=== PATIENT | female | born 1965 | race Caucasian/White ===

== ENCOUNTER 2023-09-12 17:49 | Observation (INO) | payer OTHER ==
[2023-09-12] MEDS ORDERED: NA CHLORIDE 0.9% 1,000 ML ONE ×2 (18:23→18:50)
[2023-09-12] MEDS ORDERED: ONDANSETRON 4 MG/2 ML VIAL ONE (18:24)
[2023-09-12 19:18] LABS: Absolute Eosinophils 0.1 K/uL (0-0.5); Absolute Lymphocytes (CBC) 2.5 K/uL (0.7-4.9); Absolute Monocytes 0.9 K/uL (0.1-1.3); Absolute Neutrophil 12.2 K/uL (1.8-8.0); Basophils % 0.1 % (0-1.3); Eosinophils % 0.8 % (0-4.4); Hematocrit 47.4 % (36.0-45.0); Hemoglobin 15.8 g/dL (12.0-15.0); Lymphocytes % 15.7 % (15.3-44.8); MCH 29.7 pg (27.0-35.0); MCHC 33.3 g/dL (32.0-36.0); MCV 89.3 fL (80-100); MPV 8.4 fL (7.6-11.3); Neutrophils % 77.4 % (41.7-73.7); Nucleated Red Blood Cells % 0.1 % (0-0); Platelets 362 thou/uL (152-406); RBC Red Blood Cell Count 5.31 M/uL (3.86-4.86); Red Cell Distribution Width 14.6 % (12.1-15.2)
[2023-09-12 19:23] LABS: PT Prothrombin Time 10.9 SECONDS (9.5-12.5); PTT, Activated Partial Thromb 26.5 SECONDS (24.3-36.9); Protime INR 0.99
[2023-09-12 19:32] LABS: Albumin 3.9 g/dL (3.4-5.0); Albumin/Globulin Ratio 1.1 (1.1-1.8); Bilirubin Direct 0.2 mg/dL (0-0.2); Bilirubin Indirect, Calculated 0.6 mg/dL (0.2-0.8); Bilirubin Total 0.8 mg/dL (0.2-1.0); Globulin 3.5 g/dL (2.3-3.5); Protein, Total 7.4 g/dL (6.4-8.2); Troponin High Sensitivity 6.8 pg/mL (<58.9)
--- NOTE | 2023-09-12 20:08 | EDPHYS ---
Physician Documentation [facility] Name: Keely Ortiz Age: 58 yrs Sex: Female : 1965 Arrival Date: 09/12/2023 Time: 17:49 Bed 3 Private MD: ED Physician Damian Pierce HPI: 09/11 20:05 This 58 yrs old Female presents to ER via Ambulatory with complaints of kb Nausea/Vomiting/Diarrhea, Dizziness. 20:05 Pt is a 58 year old female who presents for nausea, vomiting and diarrhea that started kb on Monday. States she took an ozempic shot on Monday night. Has not been able to tolerate anything by mouth since Monday night. Reports dizziness upon standing that started today. Denies fever, abd pain. Historical: - Allergies: 18:09 Sulfa (Sulfonamide Antibiotics); iw 18:09 Remicade; iw 18:09 Codeine; iw 18:09 Benadryl; iw - PMHx: 18:09 ankylosing spond; Fibromyalgia; Diverticulitis; iw - PSHx: 18:09 hip replacement; hysterectomy; Cholecystectomy; iw ROS: 20:03 Constitutional: As per HPI kb Exam: 20:03 Constitutional: This is a well developed, well nourished patient who is awake, alert, kb and in no acute distress. Head/Face: Normocephalic, atraumatic. ENT: Moist Mucous membranes Cardiovascular: Regular rate Respiratory: Respirations even and unlabored. No increased work of breathing. Talking in full sentences Abdomen/GI: Soft, non-tender. No distention Skin: Warm, dry with normal turgor. Normal color. MS/ Extremity: Pulses equal, no cyanosis. Neurovascular intact. Full, normal range of motion. Neuro: Awake and alert, GCS 15, oriented to person, place, time, and situation. Moves all extremities. Normal gait. 21:40 ECG was reviewed by the Attending Physician. kb Vital Signs: 18:11 BP 72 / 42; Pulse 89; Resp 16; Pulse Ox 100% on R/A; iw 18:45 BP 65 / 53 LA Supine (auto/reg); Pulse 71; kc6 18:45 BP 74 / 47 LA Sitting (auto/reg); Pulse 80; kc6 18:45 BP 75 / 59 LA Standing (auto/reg); Pulse 80; kc6 18:53 BP 85 / 60; Pulse 66; Resp 16 S; Pulse Ox 100% on R/A; kc6 19:50 BP 107 / 44; Pulse 64; Resp 16; Pulse Ox 100% on R/A; me1 20:00 BP 92 / 65; Pulse 70; Resp 16; Pulse Ox 100% on R/A; me1 21:00 BP 109 / 63; Pulse 63; Resp 16; Pulse Ox 100% ; me1 22:00 BP 115 / 73; Pulse 65; Resp 14; Pulse Ox 100% ; me1 MDM: 17:58 Patient medically screened. kb 20:03 Differential diagnosis: Nonspecific abd pain, viral gastroenteritis, dehydration, kb abnormal electrolytes. Data reviewed: vital signs, nurses notes. Consideration of Admission/Observation Patient was admitted/placed on observation. Escalation of care including admission/observation considered. Management of patient was discussed with the following: Hospitalist: Dr Cullen accepts pt for admission. Historians other than the Patient: Spouse/Significant Other: . Counseling: I had a detailed discussion with the patient and/or guardian regarding the historical points, exam findings, and any diagnostic results supporting the discharge/admit diagnosis, lab results, radiology results, the need for further work-up and treatment in the hospital. 09/11 18:13 Order name: Basic Metabolic Panel 09/11 18:13 Order name: CBC with Diff 09/11 18:13 Order name: Hepatic Function 09/11 18:13 Order name: Magnesium 09/11 18:13 Order name: Protime (+inr) 09/11 18:13 Order name: Ptt, Activated 09/11 18:13 Order name: Troponin High Sensitivity 09/11 19:08 Order name: Basic Metabolic Panel [facility] 09/11 19:08 Order name: Liver (Hepatic) Function [facility] 09/11 19:08 Order name: Troponin High Sensitivity [facility] 09/11 19:08 Order name: Magnesium [facility] 09/11 19:08 Order name: CBC with Automated Diff [facility] 09/11 19:08 Order name: Protime (+INR) [facility] 09/11 19:08 Order name: PTT, Activated Partial Thromb [facility] 09/11 19:20 Order name: CBC with Automated Diff; Complete Time: 19:27 [facility] 09/11 19:24 Order name: Protime (+INR); Complete Time: 19:27 EDMS 09/11 19:24 Order name: PTT, Activated Partial Thromb; Complete Time: 19:27 EDMS 09/11 19:32 Order name: Basic Metabolic Panel; Complete Time: 19:34 EDMS 09/11 19:32 Order name: Liver (Hepatic) Function; Complete Time: 19:34 EDMS 09/11 19:32 Order name: Troponin High Sensitivity; Complete Time: 19:34 EDMS 09/11 19:32 Order name: Magnesium; Complete Time: 19:34 EDMS 09/11 18:13 Order name: EKG; Complete Time: 18:14 kb 09/11 18:13 Order name: Cardiac monitoring; Complete Time: 18:44 kb 09/11 18:13 Order name: EKG - Nurse/Tech; Complete Time: 18:44 kb 09/11 18:13 Order name: IV Saline Lock; Complete Time: 18:44 kb 09/11 18:13 Order name: Labs collected and sent; Complete Time: 18:44 kb 09/11 18:13 Order name: NPO; Complete Time: 18:16 kb 09/11 18:13 Order name: O2 Per Protocol; Complete Time: 18:16 kb 09/11 18:13 Order name: O2 Sat Monitoring; Complete Time: 18:16 kb 09/11 18:13 Order name: Orthostatics; Complete Time: 18:44 kb EC:40 Rate is 78 beats/min. Rhythm is regular. QRS Clyman is Normal. ID interval is normal at kb 178 msec. QRS interval is normal at 92 msec. QT interval is normal at 442 msec. Administered Medications: 18:44 Drug: NS 0.9% IV 1000 ml IV at 1000 ml once Route: IV; Rate: 1000 ml; Site: right [facility] antecubital; 22:28 Follow up: Response: No adverse reaction; IV Status: Completed infusion; IV Intake: me1 1000ml 18:44 Drug: Ondansetron IVP 4 mg IVP once; over 2 minutes Route: IVP; Site: right antecubital;[facility] 19:50 Follow up: Response: No adverse reaction; Nausea is decreased me1 18:53 Drug: NS 0.9% IV 1000 ml IV at 1000 ml once Route: IV; Rate: 1000 ml; Site: left kc6 antecubital; 19:50 Follow up: Response: No adverse reaction; IV Status: Completed infusion me1 20:13 Drug: Potassium Chloride PO 40 mEq PO once Route: PO; me1 22:28 Follow up: Response: No adverse reaction me1 Disposition Summary: 09/12/23 20:07 Hospitalization Ordered Notes: Hospitalization Status: Observation kb Provider: Burt Cullen Location: Telemetry/MedSur (observation) kb Condition: Stable kb Problem: new kb Symptoms: are unchanged kb Bed/Room Type: Standard Room Assignment: 228(09/12/23 22:02) rv1 Diagnosis - Dehydration kb - Hypokalemia kb - Acute kidney failure, unspecified kb Forms: - Medication Reconciliation Form kb - SBAR form kb - Leadership Thank You Letter kb Critical care time excluding procedures: 20:03 Critical care time: Bedside Care: 15 minutes, Consultation: 10 minutes, Family kb Intervention: 5 minutes. Total time: 30 minutes Signatures: Dispatcher [employer] EDEileen Grewal, HOTEL BAGGAGE HANDLER-C HOTEL BAGGAGE HANDLER-Ckb Ashlie Champion, RN RN iw Charlene Fisher RN RN 6 Eneida Hoover rv1 Amy Cano, ALBIN RN me1 Corrections: (The following items were deleted from the chart) 22:02 20:07 kb rv1
--- NOTE | 2023-09-12 20:08 | ER ---
Nurse's Notes [facility] Name: Keely Ortiz Age: 58 yrs Sex: Female : 1965 Arrival Date: 09/12/2023 Time: 17:49 Bed 3 Private MD: Diagnosis: Dehydration;Hypokalemia;Acute kidney failure, unspecified Presentation: 09/11 18:10 Chief complaint: Patient states: started taking Ozempic for weight loss, last week, has iw been having vomiting, diarrhea , general weakness. Coronavirus screen: At this time, the client does not indicate any symptoms associated with coronavirus-19. Ebola Screen: Patient negative for fever greater than or equal to 101.5 degrees Fahrenheit, and additional compatible Ebola Virus Disease symptoms Patient denies exposure to infectious person. Patient denies travel to an Ebola-affected area in the 21 days before illness onset. No symptoms or risks identified at this time. Initial Sepsis Screen: Does the patient meet any 2 criteria? Does the patient have a suspected source of infection? No. Patient's initial sepsis screen is negative. Risk Assessment: Do you want to hurt yourself or someone else? Patient reports no desire to harm self or others. 18:10 Method Of Arrival: Ambulatory iw 18:10 Acuity: RODGER 2 iw 18:11 Onset of symptoms was September 11, 2023. iw Historical: - Allergies: 18:09 Sulfa (Sulfonamide Antibiotics); iw 18:09 Remicade; iw 18:09 Codeine; iw 18:09 Benadryl; iw - PMHx: 18:09 ankylosing spond; Fibromyalgia; Diverticulitis; iw - PSHx: 18:09 hip replacement; hysterectomy; Cholecystectomy; iw Screenin:45 [facility] ED Fall Risk Assessment (Adult) History of falling in the last 3 months, kc6 including since admission No falls in past 3 months (0 pts) Confusion or Disorientation No (0 pts) Intoxicated or Sedated No (0 pts) Impaired Gait No (0 pts) Mobility Assist Device Used No (0 pt) Altered Elimination No (0 pt) Score/Fall Risk Level 0 - 2 = Low Risk. Abuse screen: Denies threats or abuse. Denies injuries from another. Nutritional screening: No deficits noted. Tuberculosis screening: No symptoms or risk factors identified. Assessment: 18:54 General: Appears in no apparent distress. comfortable, well groomed, well developed, kc6 Behavior is calm, cooperative, appropriate for age, Reports fatigue for 0-12 hours. Pain: Denies pain. Neuro: Level of Consciousness is awake, alert, obeys commands, Oriented to person, place, time, situation, Appropriate for age Reports dizziness, a syncopal episode weakness. Cardiovascular: Denies chest pain, shortness of breath, Capillary refill < 3 seconds. Respiratory: Airway is patent Trachea midline Respiratory effort is even, unlabored, Respiratory pattern is regular, symmetrical. GI: Abdomen is flat, non-distended, Bowel sounds present X 4 quads. Reports diarrhea, nausea, vomiting, Patient currently denies abdominal pain. : No signs and/or symptoms were reported regarding the genitourinary system. EENT: No signs and/or symptoms were reported regarding the EENT system. Derm: No signs and/or symptoms reported regarding the dermatologic system. Skin is intact, is healthy with good turgor, Skin is dry, Skin is pale, Skin temperature is warm. Musculoskeletal: No signs and/or symptoms reported regarding the musculoskeletal system. Circulation, motion, and sensation intact. Capillary refill < 3 seconds, Range of motion: intact in all extremities. Vital Signs: 18:11 BP 72 / 42; Pulse 89; Resp 16; Pulse Ox 100% on R/A; iw 18:45 BP 65 / 53 LA Supine (auto/reg); Pulse 71; kc6 18:45 BP 74 / 47 LA Sitting (auto/reg); Pulse 80; kc6 18:45 BP 75 / 59 LA Standing (auto/reg); Pulse 80; kc6 18:53 BP 85 / 60; Pulse 66; Resp 16 S; Pulse Ox 100% on R/A; kc6 19:50 BP 107 / 44; Pulse 64; Resp 16; Pulse Ox 100% on R/A; me1 20:00 BP 92 / 65; Pulse 70; Resp 16; Pulse Ox 100% on R/A; me1 21:00 BP 109 / 63; Pulse 63; Resp 16; Pulse Ox 100% ; me1 22:00 BP 115 / 73; Pulse 65; Resp 14; Pulse Ox 100% ; me1 ED Course: 17:53 Patient arrived in ED. im 17:58 Eileen Dodson FNP-C is PHCP. kb 17:58 Damian Pierce MD is Attending Physician. kb 18:11 Triage completed. iw 18:11 Arm band placed on. iw 18:45 Inserted saline lock: 20 gauge in right antecubital area, using aseptic technique. kc6 Blood collected. 18:46 Patient has correct armband on for positive identification. Placed in gown. Bed in low kc6 position. Call light in reach. Side rails up X2. Adult w/ patient. Client placed on continuous cardiac and pulse oximetry monitoring. NIBP monitoring applied. 18:52 Inserted saline lock: 20 gauge in left antecubital area, using aseptic technique. kc6 18:54 Charlene Fisher RN is Primary Nurse. kc6 19:09 Report given to ALBIN Munoz. kc6 20:07 Burt Cullen MD is Hospitalizing Provider. kb 22:51 No provider procedures requiring assistance completed. Patient admitted, IV remains in rv place. Administered Medications: 18:44 Drug: NS 0.9% IV 1000 ml IV at 1000 ml once Route: IV; Rate: 1000 ml; Site: right kc6 antecubital; 22:28 Follow up: Response: No adverse reaction; IV Status: Completed infusion; IV Intake: me1 1000ml 18:44 Drug: Ondansetron IVP 4 mg IVP once; over 2 minutes Route: IVP; Site: right antecubital;kc6 19:50 Follow up: Response: No adverse reaction; Nausea is decreased me1 18:53 Drug: NS 0.9% IV 1000 ml IV at 1000 ml once Route: IV; Rate: 1000 ml; Site: left kc6 antecubital; 19:50 Follow up: Response: No adverse reaction; IV Status: Completed infusion me1 20:13 Drug: Potassium Chloride PO 40 mEq PO once Route: PO; me1 22:28 Follow up: Response: No adverse reaction me1 Medication: 22:51 VIS not applicable for this client. rv Intake: 22:28 IV: 1000ml; Total: 1000ml. me1 Outcome: 20:07 Decision to Hospitalize by Provider. kb 22:51 Admitted to Med/surg accompanied by nurse, via wheelchair, room 228, with chart, rv 22:51 Condition: good 22:51 Instructed on the need for admit, 22:52 Patient left the ED. rv Signatures: Eileen Dodson, TITRATOR-C TITRATOR-CkAshlie Reed, RN RN iw Vaibhav Tao RN RN Charlene Alexandre RN RN kc6 Yasmeen Lin Michelle RN RN me1 Corrections: (The following items were deleted from the chart) 18:12 18:11 Pulse 89bpm; Resp 16bpm; Pulse Ox 100% RA; iw iw
[2023-09-12] MEDS ORDERED: POTASSIUM CL SA 10 MEQ TAB PO ONE (20:09)
[2023-09-12] MEDS ORDERED: ONDANSETRON 4 MG/2 ML VIAL IV PRN (21:54)
[2023-09-12] MEDS ORDERED: ACETAMINOPHEN 325 MG TABLET PO PRN (21:54)
[2023-09-12] MEDS: NA CHLORIDE 0.9% 1,000 ML IV SCH (22:00)
[2023-09-12 23:19] VITALS: BMI 28.7
[2023-09-12 23:38] VITALS: O2SAT 100
[2023-09-12] MEDS: NA CHLORIDE 0.9% 1,000 ML ONE (23:43)
--- NOTE | 2023-09-13 00:07 | P.HP ---
Certification for Inpatient Patient admitted to: Inpatient With expected LOS: >2 Midnights Practitioner: I am a practitioner with admitting privileges, knowledge of patient current condition, hospital course, and medical plan of care. Services: Services provided to patient in accordance with Admission requirements found in Title 42 Section 412.3 of the Code of Federal Regulations Patient History Date of Service: 09/12/23 Reason for admission: Nausea .Vomiting History of Present Illness: 58 yrs old Female with past medical history of ankylosing spondylitis, fibromyalgia, diverticulitis, who was brought to ER with intractable nausea vomiting associated with diarrhea which has been going on for the last 2 days and has been progressively worsening. Complains of generalized weakness. Associated with some dizziness. Denies any fever or chills. No abdominal pain. Denies any chest pain or shortness of breath. Patient took an Ozempic shot on Monday night. And could not been able to tolerate anything p.o. since Monday. No sick contacts. Patient was assessed in the ER and found to have acute kidney injury and dehydration and was admitted for further management Allergies No Known Allergies Allergy (Unverified 09/12/23 22:34) Home medications list reviewed: Yes - Past Medical/Surgical History Past Medical History: Reviewed- Non-Contributory -: Ankylosing spondylitis -: Fibromyalgia Past Surgical History: Reviewed- Non-Contributory -: Hip surgery - Family History Family History: Reviewed- Non-Contributory - Social History Smoking Status: Never smoker Review of Systems 10-point ROS is otherwise unremarkable Physical Examination - Vital Signs Temperature: 98.4 F Blood Pressure: 112/68 Pulse: 82 Respirations: 18 Pulse Ox (%): 96 - Physical Exam General: Alert, Oriented x3, Cooperative, Mild distress HEENT: Atraumatic, Normocephalic Neck: Supple, 2+ carotid pulse no bruit Respiratory: Clear to auscultation bilaterally, Normal air movement Cardiovascular: Normal pulses, Regular rate/rhythm, Normal S1 S2 Capillary refill: <2 Seconds Gastrointestinal: Soft and benign, W/out hepatosplenomegaly, No ascites, No tenderness Musculoskeletal: No clubbing, No swelling Integumentary: No rashes, No tenderness/swelling Neurological: Normal speech, Sensation intact, Cranial nerves 3-12 intact, Normal reflexes 2+ Lymphatics: No axilla or inguinal lymphadenopathy - Studies Laboratory Data (last 24 hrs) 09/12/23 09/12/23 09/12/23 18:36 18:36 18:36 WBC 15.70 H Hgb 15.8 H Hct 47.4 H Plt Count 362 PT 10.9 INR 0.99 APTT 26.5 Sodium 140 Potassium 3.0 L BUN 42 H Creatinine 2.22 H Glucose 121 H Magnesium 2.0 Total Bilirubin 0.8 AST 35 ALT 42 Alkaline Phosphatase 112 Assessment and Plan - Problems (Diagnosis) (1) Acute kidney injury Current Visit: Yes Status: Acute (2) Intractable nausea and vomiting Current Visit: Yes Status: Acute Plan: Intractable nausea and vomiting Possibly due to Ozempic IV fluids Zofran as needed Monitor closely on telemetry Acute kidney injury IV hydration Renal parameters monitored Electrolytes monitor and replace accordingly Hypokalemia Replace potassium Ankylosing spondylosis Continue home medications and titrate as needed GI/DVT prophylaxis Advanced directive full code Discharge Plan: Home Plan to discharge in: 48 Hours - Advance Directives Does patient have a Living Will: No Does patient have a Durable POA for Healthcare: No - Code Status/Comfort Care Code Status: Full Code Time Spent Managing Pts Care (In Minutes): 48
[2023-09-13] MEDS: hydrOXYzine HCL 25 MG TAB PO PRN (03:21)
[2023-09-13] MEDS: LORATADINE 10 MG TAB PO ONE (03:21)
[2023-09-13 07:18] LABS: Absolute Eosinophils 0.1 K/uL (0-0.5); Absolute Monocytes 0.6 K/uL (0.1-1.3); Absolute Neutrophil 3.6 K/uL (1.8-8.0); Basophils % 0.2 % (0-1.3); Eosinophils % 1.7 % (0-4.4); Hematocrit 37.2 % (36.0-45.0); Hemoglobin 12.4 g/dL (12.0-15.0); Lymphocytes % 47.4 % (15.3-44.8); MCHC 33.2 g/dL (32.0-36.0); MCV 90.3 fL (80-100); MPV 8.3 fL (7.6-11.3); Monocytes % 7.7 % (3.3-12.3); Platelets 238 thou/uL (152-406); RBC Red Blood Cell Count 4.12 M/uL (3.86-4.86); Red Cell Distribution Width 14.4 % (12.1-15.2)
[2023-09-13 07:30] LABS: Albumin/Globulin Ratio 1.1 (1.1-1.8); Anion Gap 6.5 mEq/L (5.0-15.0); Bilirubin Total 0.5 mg/dL (0.2-1.0); Globulin 2.7 g/dL (2.3-3.5); Magnesium 1.8 mg/dL (1.6-2.4); Potassium 3.5 mEq/L (3.5-5.1); Protein, Total 5.7 g/dL (6.4-8.2)
--- NOTE | 2023-09-13 08:47 | P.PN ---
Subjective Date of Service: 09/13/23 Chief Complaint: Nausea .Vomiting Admitted for nausea vomiting diarrhea x 2 days, admitted for dehydration, IV fluids, as needed analgesics, as needed antiemetics - Physical Exam General: Alert, Oriented x3, Cooperative, Mild distress HEENT: Atraumatic, Normocephalic Neck: Supple, 2+ carotid pulse no bruit Respiratory: Clear to auscultation bilaterally, Normal air movement Cardiovascular: Normal pulses, Regular rate/rhythm, Normal S1 S2 Capillary refill: <2 Seconds Gastrointestinal: Soft and benign, W/out hepatosplenomegaly, No ascites, No tenderness Musculoskeletal: No clubbing, No swelling Integumentary: No rashes, No tenderness/swelling Neurological: Normal speech, Sensation intact, Cranial nerves 3-12 intact, Normal reflexes 2+ Lymphatics: No axilla or inguinal lymphadenopathy Review of Systems Per HPI Physical Examination - Vital Signs Temperature: 98.8 F Blood Pressure: 122/59 Pulse: 64 Respirations: 15 Pulse Ox (%): 96 - Studies Laboratory Data (last 24 hrs) 09/12/23 09/12/23 09/12/23 18:36 18:36 18:36 WBC 15.70 H Hgb 15.8 H Hct 47.4 H Plt Count 362 PT 10.9 INR 0.99 APTT 26.5 Sodium 140 Potassium 3.0 L BUN 42 H Creatinine 2.22 H Glucose 121 H Magnesium 2.0 Total Bilirubin 0.8 AST 35 ALT 42 Alkaline Phosphatase 112 09/12/23 09/12/23 09/12/23 18:13 18:13 18:13 WBC Cancelled Hgb Cancelled Hct Cancelled Plt Count Cancelled PT Cancelled INR Cancelled APTT Cancelled Sodium Cancelled Potassium Cancelled BUN Cancelled Creatinine Cancelled Glucose Cancelled Magnesium Cancelled Total Bilirubin Cancelled AST Cancelled ALT Cancelled Alkaline Phosphatase Cancelled Assessment And Plan - Plan Intractable nausea and vomiting diarrhea Possibly due to Ozempic IV fluids Zofran as needed Monitor closely on telemetry Acute kidney injury likely secondary to dehydration nausea vomiting diarrhea IV hydration Renal parameters monitored Electrolytes monitor and replace accordingly Hypokalemia Replace potassium Ankylosing spondylosis Continue home medications and titrate as needed GI/DVT prophylaxis Advanced directive full code Discharge Plan: Home - Code Status/Comfort Care Code Status: Full Code Critical Care: No Time Spent Managing PTS Care (In Minutes): 35
[2023-09-13 09:08] LABS: Specific Gravity 1.013 (1.005-1.030); Sqamous Epithelial <5 /HPF (None Seen); Urine Bacteria >50 /HPF (<20); Urine Bilirubin NEGATIVE (Negative); Urine Blood 1+ (Negative); Urine Clarity Extremely Turbid (Clear); Urine Color Light-Yellow (Yellow); Urine Culture Reflex Order REFLEXED; Urine Glucose NEGATIVE (Negative); Urine Ketones TRACE (Negative); Urine Microscopic Reflex YN ORDER UMIC; Urine Mucus Slight /HPF (None Seen); Urine Nitrite 2+ (Negative); Urine Protein TRACE (Negative); Urine RBC 21-50 /HPF (None Seen); Urine Urobilinogen Normal (Normal); Urine WBC >50 /HPF (<5); Urine WBC Clump Rare /HPF (None Seen); Urine pH 5.5 (5.0-7.0)
--- NOTE | 2023-09-13 10:39 | P.DS ---
Admission Date: 09/12/23 Discharge Date: 09/13/23 Disposition: ROUTINE DISCHARGE Discharge Condition: GOOD Reason for Admission: Nausea .Vomiting Brief History of Present Illness: 58 yrs old Female with past medical history of ankylosing spondylitis, fibromyalgia, diverticulitis, who was brought to ER with intractable nausea vomiting associated with diarrhea which has been going on for the last 2 days and has been progressively worsening. Complains of generalized weakness. Associated with some dizziness. Denies any fever or chills. No abdominal pain. Denies any chest pain or shortness of breath. Patient took an Ozempic shot on Monday. And could not been able to tolerate anything p.o. since Monday. No sick contacts. Patient was assessed in the ER and found to have acute kidney injury and dehydration and was admitted for further management - Physical Exam General: Alert, Oriented x3, Cooperative, Mild distress HEENT: Atraumatic, Normocephalic Neck: Supple, 2+ carotid pulse no bruit Respiratory: Clear to auscultation bilaterally, Normal air movement Cardiovascular: Normal pulses, Regular rate/rhythm, Normal S1 S2 Capillary refill: <2 Seconds Gastrointestinal: Soft and benign, W/out hepatosplenomegaly, No ascites, No tenderness Musculoskeletal: No clubbing, No swelling Integumentary: No rashes, No tenderness/swelling Neurological: Normal speech, Sensation intact, Cranial nerves 3-12 intact, Normal reflexes 2+ Lymphatics: No axilla or inguinal lymphadenopathy Hospital Course: 58 year-old patient presented with intractable nausea, vomiting from Ozempic. Was noted to have acute kidney injury, dehydration. Condition improved with IV fluids, prn antiemetics. Patient tolerating diet, stable for discharge to home with follow-up appointment with primary care physician. PROBLEM: nausea, vomiting, advance diet as tolerated, prn anti emetics. take Pedialyte until tolerating po diet Stop Ozempic. follow up PCP in 1 week. hypokalemia, improved to normal with electrolyte replacement Plan diet advance as tolerated Acute kidney injury improved with IV fluids-secondary to dehydration nausea vomiting Refer prescription for omeprazole As needed Zofran for nausea Continue home medicines as previously prescribed GOAL: Clear understanding of disease process INSTRUCTIONS: Physician Discharge Instructions: -Follow-up with PCP in 1 to 2 weeks -Please call Dr. Moss at [phone] if any questions regarding hospital stay -Please call nursing station at [phone] if any nursing or medication questions -Return to the emergency room if symptoms worsen Diet: ADA, low sodium Activity: Fall precautions Vital Signs/Physical Exam: Temp Pulse Resp BP Pulse Ox 98.8 F 64 15 122/59 L 96 09/13/23 08:46 09/13/23 08:46 09/13/23 08:46 09/13/23 08:46 09/13/23 08:46 Laboratory Data at Discharge: WBC 8.50 thou/uL (4.3-10.9) 09/13/23 06:51 Hgb 12.4 g/dL (12.0-15.0) D 09/13/23 06:51 Hct 37.2 % (36.0-45.0) 09/13/23 06:51 Plt Count 238 thou/uL (152-406) D 09/13/23 06:51 PT 10.9 SECONDS (9.5-12.5) 09/12/23 18:36 INR 0.99 09/12/23 18:36 APTT 26.5 SECONDS (24.3-36.9) 09/12/23 18:36 Sodium 144 mEq/L (136-145) 09/13/23 06:51 Potassium 3.5 mEq/L (3.5-5.1) D 09/13/23 06:51 BUN 33 mg/dL (7-18) H 09/13/23 06:51 Creatinine 1.19 mg/dL (0.55-1.02) H 09/13/23 06:51 Glucose 82 mg/dL (74-106) 09/13/23 06:51 Magnesium 1.8 mg/dL (1.6-2.4) 09/13/23 06:51 Total Bilirubin 0.5 mg/dL (0.2-1.0) 09/13/23 06:51 AST 20 U/L (15-37) 09/13/23 06:51 ALT 33 U/L (13-56) 09/13/23 06:51 Alkaline Phosphatase 82 U/L (45-117) D 09/13/23 06:51 Home Medications: Amlodipine Besylate [Norvasc] 5 mg PO DAILY 09/12/23 Aspirin [Aspirin EC 81 MG] 81 mg PO DAILY 09/12/23 Carvedilol [Coreg] 12.5 mg PO BID 09/12/23 Clonidine HCl [Catapres*] 0.2 mg PO TID 09/12/23 Diclofenac Sodium [Voltaren] 25 mg PO BID 09/12/23 Etanercept [Enbrel Sureclick] 09/12/23 SUMAtriptan succinate [Sumatriptan Succinate] 100 mg PO DIRECTED 09/12/23 Topiramate [Topamax*] 100 mg PO DAILY 09/12/23 lisinopriL [Lisinopril] 40 mg PO DAILY 09/12/23 Omeprazole 20 mg PO DAILY 30 Days #30 tab 09/13/23 Ondansetron [Zofran] 4 mg PO Q6H PRN 10 Days #30 tab 09/13/23 New Medications: Omeprazole 20 mg PO DAILY 30 Days #30 tab Ondansetron [Zofran] 4 mg PO Q6H PRN 10 Days #30 tab PRN Reason: Nausea / Vomiting Physician Discharge Instructions: 58 year-old patient presented with intractable nausea, vomiting from Ozempic. Was noted to have acute kidney injury, dehydration. Condition improved with IV fluids, prn antiemetics. Patient tolerating diet, stable for discharge to home with follow-up appointment with primary care physician. PROBLEM: nausea, vomiting, advance diet as tolerated, prn anti emetics. take Pedialyte until tolerating po diet Stop Ozempic. follow up PCP in 1 week. hypokalemia, improved to normal with electrolyte replacement Plan diet advance as tolerated Acute kidney injury improved with IV fluids-secondary to dehydration nausea vomiting Prescription for Zofran 1 p.o. every 6 hours as needed for nausea vomiting Refill omeprazole 1 daily for 30 days Continue home medicines as previously prescribed GOAL: Clear understanding of disease process INSTRUCTIONS: Physician Discharge Instructions: -Follow-up with PCP in 1 to 2 weeks -Please call Dr. Moss at [phone] if any questions regarding hospital stay -Please call nursing station at [phone] if any nursing or medication questions -Return to the emergency room if symptoms worsen Diet: [place] Activity: Fall precautions Followup: OOT,OOT [Primary Care Provider] - Time spent managing pt's care (in minutes): 55
[2023-09-13 12:30] VITALS: TEMP 98.6
[2023-09-13] MEDS: ONDANSETRON 4 MG/2 ML VIAL IV ONE (12:30)
[2023-09-13] MEDS: NA CHLORIDE 0.9% 1,000 ML IV ONE (12:32)
[2023-09-13 14:58] VITALS: BP 149/85
== END 2023-09-13 14:57 | disposition home or self-care (01) ==
LOC: ER 17:49 → INTOOBSV 21:54 → 2ND 21:54 → UNDOADMIN 22:42
PROVIDERS: ADMIT Family Medicine; ATTEND Hospitalist
DX: R11.2 Nausea with vomiting, unspecified (principal); E86.0 Dehydration; N17.9 Acute kidney failure, unspecified; E87.6 Hypokalemia; M79.7 Fibromyalgia; K57.92 Diverticulitis of intestine, part unspecified, without perforation or abscess without bleeding; M45.9 Ankylosing spondylitis of unspecified sites in spine; Z88.2 Allergy status to sulfonamides; Z88.5 Allergy status to narcotic agent; Z88.8 Allergy status to other drugs, medicaments and biological substances
CPT/HCPCS: 96361; 93005; 87088; 85025 ×2; 81001; 87086; 80048; 36415; 83735 ×2; 85610; 80076; 85730; 84484; 80053; 96374; 99285; J2405 ×2; J7030 ×4; G0378